=== PATIENT | female | born 1995 | race Caucasian/White ===

== ENCOUNTER 2018-09-01 01:57 | Emergency (ER) | payer OTHER | END 2018-09-01 02:38 | disposition home or self-care (01) | LOC: BURERS 01:57 | DX: S01.511A Laceration without foreign body of lip, initial encounter (principal); F90.9 Attention-deficit hyperactivity disorder, unspecified type; W19.XXXA Unspecified fall, initial encounter | CPT/HCPCS: 12011 ==